=== PATIENT | female | born 1960 | race Caucasian/White ===

== ENCOUNTER 2017-05-25 19:19 | Emergency (ER) | payer BC ==
--- NOTE | 2017-05-25 21:28 | RAD ---
INDICATION: Headache after slipping on ice and striking occiput COMPARISON: None. TECHNIQUE: Contiguous axial sections of the brain were obtained from the skull base to the vertex without contrast. FINDINGS: The ventricles, cisterns and sulci are within normal limits. The irizarry-white matter differentiation is adequately maintained and there is no sulcal effacement. No significant focal abnormality or mass effect is present. There is no evidence for intracranial hemorrhage. There is mild induration of the subcutaneous tissue overlying the occiput. There is no underlying fracture of the calvarium. The visualized portion of the paranasal sinuses appear clear. The mastoid air cells are well aerated bilaterally. IMPRESSION: Normal CT of the brain.
--- NOTE | 2017-05-25 22:10 | ED ---
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 Patient denies LOC. States shortly after she began having a diffuse headache. Denies visual changes, loss of memory, trouble concentrating , nausea, vomiting and gait disturbance. Has not taken any medication for her headache. No other complaints or injuries. Denies neck/back pain. No hematoma or other signs of trauma. Feels fine otherwise. PMHx significant for diabetes, htn and high cholesterol. No anticoagulants. - History Of Current Complaint Chief Complaint: EDHeadInjury Stated Complaint: fall Time Seen by Provider: 05/25/17 19:50 Hx Obtained From: Patient Mechanism Of Injury: Direct Blow, Fall From A Standing Position Onset/Duration: Started Hours Ago, Traumatic, Resolved Onset of Pain: Minutes, Post Accident Severity Currently: None Severity Initially: Mild Pain Intensity: 4 Pain Scale Used: 0-10 Numeric Location of Head Injury: Occipital Location: Diffuse Character: Dull, Aching Aggravating Factor(s): Other: - nothing Alleviating Factor(s): Other: - nothing Associated Signs And Symptoms: Headache - Allergies/Home Medications Allergies/Adverse Reactions: Allergies Allergy/AdvReac Type Severity Reaction Status Date / Time No Known Allergies Allergy Verified 05/25/17 19:23 Home Medications: Home Medications Atorvastatin* [Lipitor*] 20 mg PO 2100 05/25/17 [History Confirmed 05/25/17] Insulin GLARGINE(*) [Lantus(*)] 20 units SUBCUT ONCE 05/25/17 [History Confirmed 05/25/17] Liraglutide [Victoza 3-Felipe] 20 units SQ DAILY 05/25/17 [History Confirmed ] Metformin HCl 500 mg PO BID 05/25/17 [History Confirmed 05/25/17] PMH/Surg Hx/FS Hx/Imm Hx Endocrine/Hematology History: Denies: Hx Diabetes Cardiovascular History: Denies: Hx Hypertension - Cancer History Hx Chemotherapy: No Hx Radiation Therapy: No - Surgical History Surgery Procedure, Year, and Place: n/a - Immunization History Immunizations Up to Date: Yes Infectious Disease History: No Infectious Disease History: Denies: Traveled Outside the [place] in Last 30 Days - Family History Known Family History: Positive: None - Social History Alcohol Use: None Substance Use Type: Reports: None Smoking Status (MU): Former Smoker Review of Systems Constitutional: Negative Cardiovascular: Negative Respiratory: Negative Neurological: Other - head injury Positive: Headache All Other Systems Reviewed And Are Negative: Yes Physical Exam Triage Information Reviewed: Yes Vital Signs On Initial Exam: Initial Vitals Temp Pulse Resp BP Pulse Ox 97.3 F 74 18 124/64 97 05/25/17 19:21 18 19:21 05/25/17 19:21 05/25/17 19:21 05/25/17 19:21 Vital Signs Reviewed: Yes Appearance: Positive: Well-Appearing, No Pain Distress, Well-Nourished Skin: Positive: Warm, Skin Color Reflects Adequate Perfusion, Dry, Other - no signs of trauma Head/Face: Positive: Normal Head/Face Inspection, Other - no racoon eyes or burnett signs. Negative: Scalp - no hematoma or signs of trauma Eyes: Positive: Normal, EOMI, ADRYAN, Conjunctiva Clear ENT: Positive: Normal ENT inspection, Hearing grossly normal, Pharynx normal, TMs normal Neck: Positive: Supple, Nontender Respiratory/Lung Sounds: Positive: Clear to Auscultation, Breath Sounds Present. Negative: Rales, Rhonchi, Wheezes Cardiovascular: Positive: Normal, RRR, Pulses are Symmetrical in both Upper and Lower Extremities. Negative: Murmur, Rub Musculoskeletal: Positive: Normal, Strength/ROM Intact. Negative: Limited @, Interruption @, Pain @ Neurological: Positive: Normal - memory and concentration intact normal neuro exam, Sensory/Motor Intact, Alert, Oriented to Person Place, Time, CN Intact II- III, Reflexes Intact, NV Bundle Intact Distally, Normal Gait, Facial Symmetry, Speech Normal - Keri Coma Scale Best Eye Response: 4 - Spontaneous Best Motor Response: 6 - Obeys Commands Best Verbal Response: 5 - Oriented Coma Scale Total: 15 Diagnostics - Vital Signs Vital Signs Temp Pulse Resp BP Pulse Ox 05/25/17 19:21 97.3 F 74 18 124/64 97 - Laboratory Lab Statement: Any lab studies that have been ordered have been reviewed, and results considered in the medical decision making process. - CT head CT Interpretation: No Acute Changes - Normal CT of the brain. CT Interpretation Completed By: Radiologist Head Injury Course/Dx Course Of Treatment: ct brain obtained and negative. appears to have suffered head injury. no signs/symptoms of a concussion at this time however may appear. patient was educated and is aware of the worsening signs and symptoms to watch out for. headache had improve once examined. no medicaton therefore given. if returned encouraged headache. increase fluids, rest and avoid physical activity. follow up pcp for recheck. - Diagnoses Differential Diagnosis/HQI/PQRI: Concussion Without LOC, Contusion, Hematoma, Other - head injury Provider Diagnoses: Head injury due to trauma Discharge - Discharge Plan Condition: Stable Disposition: HOME Patient Education Materials: Head Injury (ED) Referrals: Jacob Rhoades MD [Primary Care Provider] - Additional Instructions: Ibuprofen as needed for headache. Increase fluid intake and rest. Any new or owrsening symptoms please seek medical attention as we discussed ( concussive type symptoms= nausea, trouble concentrating, trouble focusing, headache). Follow up with PCP to ensure improvement.
[2017-05-25 22:17] VITALS: BP 131/68
== END 2017-05-25 22:22 | disposition home or self-care (01) ==
LOC: ED 19:19
DX: S09.90XA Unspecified injury of head, initial encounter (principal); W00.9XXA Unspecified fall due to ice and snow, initial encounter; Y92.9 Unspecified place or not applicable; R51 Headache; Z87.891 Personal history of nicotine dependence
CPT/HCPCS: 70450; 99282

== ENCOUNTER 2017-07-01 17:17 | Inpatient (IN) | payer BC ==
[2017-07-01] MEDS ORDERED: Nitroglycerin TAB 0.4 MG* 0.4 MG TAB SL PRN ×2 (17:32→19:41)
[2017-07-01] MEDS ORDERED: Aspirin Low Dose CHEW TAB* 81 MG ONE (17:33)
[2017-07-01] MEDS ORDERED: Nitroglycerin TAB 0.4 MG* 0.4 MG TAB ONE (17:33)
[2017-07-01] MEDS ORDERED: Aspirin Low Dose CHEW TAB* 81 MG PO ONE (17:33)
[2017-07-01] MEDS ORDERED: NS 0.9% 1000 ML* 1,000 ML IV ONE ×2 (17:40→17:53)
[2017-07-01 17:47] LABS: ABS Basophils 0.1 10^3/ul (0-0.2); ABS Eosinophils 0.2 10^3/ul (0-0.6); ABS Lymphocytes 3.8 10^3/ul (1.0-4.8); ABS Monocytes 0.7 10^3/ul (0-0.8); ABS Neutrophils 9.6 10^3/ul (1.5-7.7); ABS Nucleated RBC 0 10^3/ul; Eosinophil % 1.1 % (0-6); Hematocrit 46 % (35-47); Hemoglobin 15.4 g/dl (12.0-16.0); Lymphocyte % 26.7 % (25-47); Mean Corpuscular HGB Conc 34 g/dl (31-36); Mean Corpuscular Hemoglobin 30 pg (27-31); Mean Corpuscular Volume 88 fL (80-97); Mean Platelet Volume 8.5 um3 (7.4-10.4); Nucleated Red Blood Cells % 0.1; Platelet Count 286 10^3/ul (150-450); Red Blood Count 5.16 10^6/ul (4.0-5.4); Red Cell Distribution Width 13 % (10.5-15); White Blood Count 14.3 10^3/ul (3.5-10.8)
[2017-07-01] MEDS ORDERED: Heparin for STEMI(*) 5,000 UNITS/ML 1 ML VIAL IV ONE (17:50)
[2017-07-01] MEDS ORDERED: Ticagrelor* 90 MG TAB PO ONE (17:51)
[2017-07-01] MEDS ORDERED: Heparin(*) 1000 UNIT/ML 10 ML VIAL CATH LAB IV ONE ×2 (17:53→18:07)
[2017-07-01] MEDS ORDERED: VERAPAMIL 2.5 MG/ML 2 ML VIAL ** 5 mg/2 ml ONE ×2 (17:53→18:07)
[2017-07-01] MEDS ORDERED: fentaNYL* 50 MCG/ML 2 ML VIAL (100 MCG VIAL) ONE ×2 (17:53→18:11)
[2017-07-01] MEDS ORDERED: Midazolam* 1 MG/ML 10 ML VIAL (10 MG) ONE ×2 (17:53→18:11)
[2017-07-01] MEDS ORDERED: Atropine SYRINGE* 0.1 MG/ML 10 ML SYRINGE (1 MG) ONE (17:54)
[2017-07-01] MEDS ORDERED: Iohexol 350 (CONTRAST) 200 ML MDV IV ONE (17:54)
[2017-07-01] MEDS ORDERED: nitroGLYCERIN DRIP* 25,000 MCG/250 ML BTL ONE (17:54)
[2017-07-01] MEDS ORDERED: Heparin 2 UNITS/ML IVPREMIX* 1,000 ML IV ONE ×2 (17:54→18:38)
[2017-07-01] MEDS ORDERED: Lidocaine 1% INJ* 10 MG/ML 30 ML SDV ONE (17:54)
[2017-07-01] MEDS ORDERED: Heparin VIAL(*) 5000 UNITS/ML VIAL (FIVE THOUSAND) IV SCH (18:00)
[2017-07-01] MEDS: nitroGLYCERIN DRIP* 25,000 MCG/250 ML BTL IV ONE (18:00)
--- NOTE | 2017-07-01 18:05 | RAD ---
HISTORY: Chest pain COMPARISONS: None VIEWS: 1: frontal portable view of the chest at 5:56 PM FINDINGS: LINES AND TUBES: None. CARDIOMEDIASTINAL SILHOUETTE: The cardiomediastinal silhouette is normal for portable technique. PLEURA: The costophrenic angles are sharp. No pleural abnormalities are noted. LUNG PARENCHYMA: The lungs are clear. ABDOMEN: The upper abdomen is clear. There is no subphrenic gas. BONES AND SOFT TISSUES: No bone or soft tissue abnormalities are noted. IMPRESSION: NO ACTIVE CARDIOPULMONARY DISEASE.
[2017-07-01 18:07] LABS: EGFR Non-African American 66.9 (>60)
[2017-07-01] MEDS ORDERED: Metoprolol Tartrate IV* 1 MG/ML 5 ML VIAL ONE (18:52)
[2017-07-01] MEDS ORDERED: NitroPRUSSide* 25 MG/ML 2 ML VIAL IVPB ONE (18:55)
[2017-07-01] MEDS ORDERED: Norepinephrine VIAL* 1 MG/ML 4 ML VIAL ONE (18:56)
[2017-07-01] MEDS ORDERED: Eptifibatide IV (Load dose)(*) 2 MG/ML 10 ml VIAL ONE (19:04)
[2017-07-01] MEDS ORDERED: Ondansetron INJ* 2 MG/ML VIAL IV PRN (19:41)
[2017-07-01] MEDS ORDERED: Acetaminophen TAB* 325 MG PO PRN (19:41)
[2017-07-01] MEDS ORDERED: Zolpidem TAB* 5 MG PO PRN (19:41)
[2017-07-01] MEDS ORDERED: NS 0.9% 1000 ML* 1,000 ML IV SCH (19:45)
[2017-07-01] MEDS ORDERED: Dextrose 50% Syringe 50 ML* 25 GM/50 ML SYRINGE IV PUSH PRN (19:58)
[2017-07-01] MEDS: Ticagrelor* 90 MG TAB PO SCH (21:21)
[2017-07-01] MEDS: Metoprolol Tartrate TAB* 25 MG PO SCH (21:21)
[2017-07-02] MEDS: Insulin LISPRO* 1 UNITS UNIT SUBCUT SCH ×4 (00:35→17:13)
[2017-07-02] MEDS: Metoprolol Tartrate TAB* 25 MG PO SCH (04:13)
[2017-07-02 05:15] LABS: EGFR Non-African American 73.7 (>60)
[2017-07-02] MEDS: nitroGLYCERIN DRIP* 25,000 MCG/250 ML BTL IV ONE (07:58)
[2017-07-02] MEDS ORDERED: Liraglutide (NF) 18 MG/3 ML SUBCUT SCH (09:00)
[2017-07-02] MEDS: Metoprolol Tartrate TAB* 50 mg PO SCH ×2 (10:03→16:46)
[2017-07-02] MEDS: Ticagrelor* 90 MG TAB PO SCH ×2 (10:04→20:26)
[2017-07-02] MEDS: Aspirin Low Dose CHEW TAB* 81 MG PO SCH (10:04)
[2017-07-02] MEDS: Insulin GLARGINE(*) 1 UNITS UNIT SUBCUT SCH (10:04)
[2017-07-02] MEDS: PTO:Liraglutide (NF) 18 MG/3 ML SUBCUT SCH (11:17)
--- NOTE | 2017-07-02 16:28 | HP ---
CC: Dr. Rhoades; Rebekah Vila MD * HISTORY AND PHYSICAL: DATE OF ADMISSION: 07/01/17 PRIMARY CARE PHYSICIAN: Dr. Rhoades. HISTORY OF PRESENT ILLNESS: A 57-year-old diabetic, hypertensive, hyperlipidemic, obese patient presenting to the ER with acute inferior wall ST elevation infarct. She has no previous cardiac history. At approximately 9 o'clock in the morning on the day of admission she developed what she thought was heartburn with precordial discomfort. It persisted all day long, radiated to the jaw, through to her back between her shoulder blades. She presented to the ER where EKG at 1736 hours revealed sinus rhythm at 80 with an acute inferolateral ST elevation infarct with up to [address] elevation inferiorly, as well as in V4 through V6 with reciprocal ST depression with T-wave inversion in 1, aVL, V1 through V3. She received Brilinta, heparin, IV nitro, and aspirin pre label sewer, underwent emergent catheterization. Even in retrospect, she has no previous cardiac symptoms. She has a history of hyperlipidemia, diabetes, and a family history of premature coronary disease. PAST MEDICAL HISTORY: Obesity, hyperlipidemia, hypertension, diabetes type 2. PREHOSPITAL MEDICATIONS: 1. Metformin 500 mg b.i.d. 2. Lisinopril 20 mg daily. 3. Victoza 1.2 mg subcu daily. 4. Lantus insulin 20 units subcu daily. 5. Lipitor 40 mg daily. 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 She is a smoker. REVIEW OF SYSTEMS: General: No weight loss. No fever. 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 GI: No history of previous peptic ulcer disease or bleeding. She does not take daily aspirin. Circulatory: No claudication. Heme: No history of malignancy or anemia. Remainder all negative. PHYSICAL EXAMINATION VITAL SIGNS: When seen in the ER, blood pressure was 103/64, heart rate in the 70s, sinus rhythm. HEENT: Normal without xanthelasma, scleral injection, or jaundice. EOMs normal. NECK: JVP and carotids normal. No bruits. LUNGS: Clear to percussion and auscultation. She was complaining of reduced, but still present chest discomfort with IV nitroglycerin. CARDIAC: [place] and RV not palpable, normal S1 and S2, rhythm regular. No gallop , no murmur, no rub. ABDOMEN: Obese, nontender. Normal bowel sounds. Aorta not palpable. No bruits. Liver not palpable. EXTREMITIES: Femoral pulses palpable. No bruits. Radial pulses 2+, pedal pulses palpable. She has no cyanosis, clubbing, or edema. NEUROLOGIC: Cranial nerves grossly intact. SKIN: Warm and perfused. PSYCH: She is oriented and appropriate. DIAGNOSTIC STUDIES/LAB DATA: White count elevated 14.3, otherwise normal CBC. BMP: Normal electrolytes, creatinine 0.87, GFR 66.9. Random blood sugar high at 228, her lactate was elevated at 2.4. First troponin was 0.11. Cholesterol 169, triglycerides 134, LDL 83, HDL 59.3. Hemoglobin A1c in 2016 was high at 9.4, this admission hemoglobin A1c is even higher at 11.2. In reviewing [facility] , she has had hemoglobin A1c 7.7 or higher since 2011. EKG as above. Chest x-ray by my review shows no infiltrate or heart failure. IMPRESSION: 1. Acute inferolateral ST elevation infarct, Killip class I. She underwent emergent catheterization. Clinically, she presented late. 2. Diabetes type 2, poorly controlled. 3. Hypertension, on lisinopril. 4. Dyslipidemia, on Lipitor 40 with LDL less than 100, but above 70. I will increase her statin further. [id number]/[facility] #: [id number] [facility] HOSPITALFermin
[2017-07-02] MEDS: Atorvastatin* 80 MG TAB PO SCH (16:46)
[2017-07-03] MEDS: Metoprolol Tartrate TAB* 50 mg PO SCH ×3 (00:46→17:03)
[2017-07-03] MEDS: Insulin LISPRO* 1 UNITS UNIT SUBCUT SCH ×3 (08:25→16:49)
[2017-07-03] MEDS: Insulin GLARGINE(*) 1 UNITS UNIT SUBCUT SCH (08:26)
[2017-07-03] MEDS: Ticagrelor* 90 MG TAB PO SCH ×2 (09:44→21:27)
[2017-07-03] MEDS: Aspirin Low Dose CHEW TAB* 81 MG PO SCH (09:44)
[2017-07-03] MEDS: PTO:Liraglutide (NF) 18 MG/3 ML SUBCUT SCH (09:45)
[2017-07-03] MEDS: Lisinopril TAB* 5 MG PO SCH (15:16)
[2017-07-03] MEDS: Atorvastatin* 80 MG TAB PO SCH (17:03)
[2017-07-04] MEDS: Metoprolol Tartrate TAB* 50 mg PO SCH ×3 (02:03→17:01)
[2017-07-04 05:53] LABS: EGFR Non-African American 68.7 (>60)
[2017-07-04] MEDS: Insulin LISPRO* 1 UNITS UNIT SUBCUT SCH ×3 (08:57→16:49)
[2017-07-04] MEDS: Insulin GLARGINE(*) 1 UNITS UNIT SUBCUT SCH (08:58)
[2017-07-04] MEDS: PTO:Liraglutide (NF) 18 MG/3 ML SUBCUT SCH (08:58)
[2017-07-04] MEDS: Ticagrelor* 90 MG TAB PO SCH ×2 (09:00→21:49)
[2017-07-04] MEDS: Aspirin Low Dose CHEW TAB* 81 MG PO SCH (09:00)
[2017-07-04] MEDS: Lisinopril TAB* 5 MG PO SCH (09:00)
--- NOTE | 2017-07-04 13:25 | ED ---
Leigh Ann Solitario Nilda, scribed for Ted Alvares MD on 07/01/17 at 1754 . HPI Chest Pain - HPI Summary HPI Summary: This patient is a 57 year old F presenting to [facility] with a chief complaint of acute CP (radiates towards arms and back but not down arms) that has progressively worsened since this morning while at work. The patient rates the pain 6/10 in severity. Symptoms aggravated by palpation and alleviated by nothing. Patient reports at onset of CP, she began to feel increasingly fatigued and nauseous. Patient notes SOB, but denies current nausea, edema, and calf pain. She notes her chest pain was most severe on her way here. Patient states she is on medications for DM, HTN, and HLD. No PMHx OR or CABG. - History of Current Complaint Chief Complaint: EDChestWallPain Time Seen by Provider: 07/01/17 17:31 Hx Obtained From: Patient Onset/Duration: Started Hours Ago, Still Present Timing: Constant Current Severity: Moderate Pain Intensity: 6 Pain Scale Used: 0-10 Numeric Chest Pain Location: Mid Sternal Chest Pain Radiates: Yes Chest Pain Radiates To:: Back, Arm Aggravating Factor(s): Exertion, Other: - palpation Alleviating Factor(s): Nothing Associated Signs and Symptoms: Positive: Other: - fatigue, nausea (resolved), SOB; negative edema, calf pain - Allergy/Home Medications Allergies/Adverse Reactions: Allergies Allergy/AdvReac Type Severity Reaction Status Date / Time No Known Allergies Allergy Verified 05/25/17 19:23 Home Medications: Home Medications Atorvastatin* [Lipitor*] 40 mg PO DAILY 07/01/17 [History Confirmed 07/01/17] Liraglutide [Victoza 3-Felipe] 1.2 mg SUBCUT DAILY 07/01/17 [History Confirmed ] Lisinopril TAB* [Prinivil TAB*] 20 mg PO DAILY 07/01/17 [History Confirmed 07/01] metFORMIN* [Glucophage 500 MG TAB *] 500 mg PO BID 07/01/17 [History Confirmed 07/01/17] PMH/Surg Hx/FS Hx/Imm Hx Endocrine/Hematology History: Reports: Hx Diabetes Cardiovascular History: Reports: Hx Hypertension - Cancer History Hx Chemotherapy: No Hx Radiation Therapy: No - Surgical History Surgery Procedure, Year, and Place: n/a Infectious Disease History: No Infectious Disease History: Denies: Traveled Outside the [place] in Last 30 Days - Family History Known Family History: Positive: Cardiac Disease - Social History Occupation: Employed Full-time Alcohol Use: None Substance Use Type: Reports: None Smoking Status (MU): Former Smoker Review of Systems Positive: Fatigue. Negative: Fever, Chills Negative: Erythema Negative: Sore Throat Positive: Chest Pain Positive: Shortness Of Breath. Negative: Cough Positive: Nausea - resolved. Negative: Abdominal Pain, Vomiting Negative: dysuria, hematuria Positive: Other - negative calf pain. Negative: Edema Negative: Rash Neurological: Other - negative dizziness All Other Systems Reviewed And Are Negative: Yes Physical Exam - Summary Physical Exam Summary: Constitutional: Well-developed, Well-nourished, Alert. Patient is clutching chest. Skin: Warm, Dry, hirsutism HENT: Normocephalic; Atraumatic Eyes: Conjunctiva normal Neck: Musculoskeletal ROM normal neck. (-) JVD, (-) Stridor, (-) Tracheal deviation Cardio: Rhythm regular, rate normal, Heart sounds normal; Intact distal pulses; The pedal pulses are 2+ and symmetric. Radial pulses are 2+ and symmetric. (-) Murmur Pulmonary/Chest wall: Effort normal. (-) Respiratory distress, (-) Wheezes, (-) Rales Abd: Soft, (-) Tenderness, (-) Distension, (-) Guarding, (-) Rebound Musculoskeletal: (-) Edema Lymph: (-) Cervical adenopathy Neuro: Alert, Oriented x3 Psych: Mood and affect Normal Triage Information Reviewed: Yes Vital Signs On Initial Exam: Initial Vitals Temp Pulse Resp BP Pulse Ox 97.2 F 78 22 103/64 100 07/01/17 17:30 07/01/17 17:30 07/01/17 17:30 07/01/17 17:30 07/01/17 17:30 Vital Signs Reviewed: Yes Diagnostics - Vital Signs Vital Signs Temp Pulse Resp BP Pulse Ox 07/01/17 17:30 97.2 F 78 22 103/64 100 - Laboratory Lab Results: Lab Results 07/01/17 07/01/17 07/01/17 Range/Units 17:31 17:31 17:31 WBC 14.3 H (3.5-10.8) 10^3/ul RBC 5.16 (4.0-5.4) 10^6/ul Hgb 15.4 (12.0-16.0) g/dl Hct 46 (35-47) % MCV 88 (80-97) fL MCH 30 (27-31) pg MCHC 34 (31-36) g/dl RDW 13 (10.5-15) % Plt Count 286 (150-450) 10^3/ul MPV 8.5 (7.4-10.4) um3 Neut % (Auto) 67.1 (38-83) % Lymph % (Auto) 26.7 (25-47) % Hanson % (Auto) 4.7 (0-7) % Eos % (Auto) 1.1 (0-6) % Baso % (Auto) 0.4 (0-2) % Absolute Neuts (auto) 9.6 H (1.5-7.7) 10^3/ul Absolute Lymphs (auto) 3.8 (1.0-4.8) 10^3/ul Absolute Monos (auto) 0.7 (0-0.8) 10^3/ul Absolute Eos (auto) 0.2 (0-0.6) 10^3/ul Absolute Basos (auto) 0.1 (0-0.2) 10^3/ul Absolute Nucleated RBC 0 10^3/ul Nucleated RBC % 0.1 Sodium 133 (133-145) mmol/L Potassium 3.9 (3.5-5.0) mmol/L Chloride 102 (101-111) mmol/L Carbon Dioxide 23 (22-32) mmol/L Anion Gap 8 (2-11) mmol/L BUN 24 (6-24) mg/dL Creatinine 0.87 (0.51-0.95) mg/dL Est GFR ( Amer) 86.0 (>60) Est GFR (Non-Af Amer) 66.9 (>60) BUN/Creatinine Ratio 27.6 H (8-20) Glucose 228 H (70-100) mg/dL Hemoglobin A1c (4.0-5.6) % Lactic Acid 2.4 H* (0.5-2.0) mmol/L Calcium 10.1 (8.6-10.3) mg/dL Total Bilirubin 0.60 (0.2-1.0) mg/dL AST 36 (13-39) U/L ALT 12 (7-52) U/L Alkaline Phosphatase 79 (34-104) U/L Troponin I 0.11 H* (<0.04) ng/mL Total Protein 7.0 (6.4-8.9) g/dL Albumin 4.0 (3.2-5.2) g/dL Globulin 3.0 (2-4) g/dL Albumin/Globulin Ratio 1.3 (1-3) Triglycerides 134 mg/dL Cholesterol 169 mg/dL LDL Cholesterol 83 mg/dL HDL Cholesterol 59.3 mg/dL 07/01/17 Range/Units 17:31 WBC (3.5-10.8) 10^3/ul RBC (4.0-5.4) 10^6/ul Hgb (12.0-16.0) g/dl Hct (35-47) % MCV (80-97) fL MCH (27-31) pg MCHC (31-36) g/dl RDW (10.5-15) % Plt Count (150-450) 10^3/ul MPV (7.4-10.4) um3 Neut % (Auto) (38-83) % Lymph % (Auto) (25-47) % Hanson % (Auto) (0-7) % Eos % (Auto) (0-6) % Baso % (Auto) (0-2) % Absolute Neuts (auto) (1.5-7.7) 10^3/ul Absolute Lymphs (auto) (1.0-4.8) 10^3/ul Absolute Monos (auto) (0-0.8) 10^3/ul Absolute Eos (auto) (0-0.6) 10^3/ul Absolute Basos (auto) (0-0.2) 10^3/ul Absolute Nucleated RBC 10^3/ul Nucleated RBC % Sodium (133-145) mmol/L Potassium (3.5-5.0) mmol/L Chloride (101-111) mmol/L Carbon Dioxide (22-32) mmol/L Anion Gap (2-11) mmol/L BUN (6-24) mg/dL Creatinine (0.51-0.95) mg/dL Est GFR ( Amer) (>60) Est GFR (Non-Af Amer) (>60) BUN/Creatinine Ratio (8-20) Glucose (70-100) mg/dL Hemoglobin A1c 11.2 H (4.0-5.6) % Lactic Acid (0.5-2.0) mmol/L Calcium (8.6-10.3) mg/dL Total Bilirubin (0.2-1.0) mg/dL AST (13-39) U/L ALT (7-52) U/L Alkaline Phosphatase (34-104) U/L Troponin I (<0.04) ng/mL Total Protein (6.4-8.9) g/dL Albumin (3.2-5.2) g/dL Globulin (2-4) g/dL Albumin/Globulin Ratio (1-3) Triglycerides mg/dL Cholesterol mg/dL LDL Cholesterol mg/dL HDL Cholesterol mg/dL Result Diagrams: 07/01/17 17:31 18 05:24 Lab Statement: Any lab studies that have been ordered have been reviewed, and results considered in the medical decision making process. - Radiology CXR Radiology Interpretation Completed By: Radiologist - CXR reveals no active cardiopulmonary disease. Dr. Alvares has reviewed this radiology report. - EKG 1736 Cardiac Rate: NL EKG Rhythm: Sinus Rhythm - 80 bpm EKG Interpretation: inferior wall STEMI Re-Evaluation - Re-Evaluation First Eval Re-Evaluation Time: 18:12 Comment: Reviewed labs, treatment plan, and dispo plan with pt. Pt agreeable with plan. Chest Pain Course/Dx - Course Assessment/Plan: This patient is a 57 year old F presenting to [facility] with a chief complaint of acute CP (radiates towards arms and back but not down arms) that has progressively worsened since this morning while at work. The patient rates the pain 6/10 in severity. Symptoms aggravated by palpation and alleviated by nothing. Patient reports at onset of CP, she began to feel increasingly fatigued and nauseous. Patient notes SOB, but denies current nausea , edema, and calf pain. She notes her chest pain was most severe on her way here. Patient states she is on medications for DM, HTN, and HLD. No PMHx OR or CABG. STEMI alert 1738. An EKG reveals 80 bpm, NSR, inferior wall STEMI, 1736. CXR reveals no active cardiopulmonary disease. Dr. Alvares has reviewed this radiology report. [1749] Dr. Vila (claim representative) recommends Brilinta and IV NTG titrated for the inferior wall OR to get pain under control. Pt had relief of CP with IV NTG. Pt was stable in ER. She was taken emergently to [facility]orer [facility]. Dx STEMI. 45 Mins CCT. - Diagnoses Provider Diagnoses: STEMI (ST elevation myocardial infarction) - Provider Notifications Discussed Care Of Patient With: Rebekah Vila - Cardiology Time Discussed With Above Provider: 17:49 Instructed by Provider To: Other - recommends Brilinta and IV NTG titrated for the inferior wall OR to get pain under control. - Critical Care Time Critical Care Time: 30-74 min - 45 mins Discharge - Sign-Out/Discharge Documenting (check all that apply): Discharge - Discharge Plan Condition: Good Disposition: HOME Discharge Disposition Comment: Taken to Certified [facility] Administrator - Billing Disposition and Condition Condition: STABLE The documentation as recorded by the Leigh Ann manning Nilda accurately reflects the service I personally performed and the decisions made by me, Ted Alvares MD.
[2017-07-04] MEDS: Atorvastatin* 80 MG TAB PO SCH (17:01)
[2017-07-05] MEDS: Metoprolol Tartrate TAB* 50 mg PO SCH ×2 (01:54→08:19)
[2017-07-05 06:43] LABS: EGFR Non-African American 62.7 (>60)
[2017-07-05 07:48] VITALS: BP 104/53
[2017-07-05] MEDS: Insulin LISPRO* 1 UNITS UNIT SUBCUT SCH (07:49)
[2017-07-05] MEDS: Insulin GLARGINE(*) 1 UNITS UNIT SUBCUT SCH (08:19)
[2017-07-05] MEDS: Aspirin Low Dose CHEW TAB* 81 MG PO SCH (08:19)
[2017-07-05] MEDS: Ticagrelor* 90 MG TAB PO SCH (08:19)
[2017-07-05] MEDS: PTO:Liraglutide (NF) 18 MG/3 ML SUBCUT SCH (08:20)
[2017-07-05] MEDS: Lisinopril TAB* 5 MG PO SCH (08:21)
--- NOTE | 2017-07-06 00:07 | DS ---
CC: Dr. Rebekah Vila; Dr. Jacob Rhoades * DISCHARGE SUMMARY: DATE OF ADMISSION: 07/01/17 DATE OF DISCHARGE: 07/05/17 FINAL DIAGNOSIS: Acute ST-segment elevation inferior wall myocardial infarction. HOSPITAL COURSE: The patient is a pleasant 57-year-old female who presented to the [facility] in the throes of an acute ST segment elevation inferior wall myocardial infarction. She was seen by Dr. Rebekah Vila emergently and taken to the cardiovascular laboratory where she underwent cardiac catheterization and intervention with placement of a 2.75 x 20 mm long Synergy drug eluting stent in the right coronary artery, which had PATRICK-3 flow in most of the vessel with a total occlusion to the distal posterior left ventricular branch. The artery was probed with a wire and found to be too small to treat. The patient did well postprocedure. The cardiac enzymes revealed a peak CPK of 1200 and MB of 271. The EKG revealed evolving inferior wall myocardial infarction and last EKG taken on 07/04/17 revealed Q waves in II with a minimal of any R-wave in III and aVF with T-wave inversions in those leads, a very tiny Q wave is noted in I and aVL and V6. An R greater than S was seen in V2 with counter clockwise progression of the R-wave suggesting possible posterior wall infarct 2. The patient was up and about in the hospital with no significant ventricular arrhythmias laid out from the infarct. Vital signs remained stable. PHYSICAL EXAMINATION: Vital Signs: On the day of discharge, the patient's vital signs were blood pressure 104/53 with a pulse of 72, respirations 16, O2 saturation 100% on room air. Neck: Supple. No increased JVP. Carotid with good upstroke and volume without bruits. HEENT: Conjunctivae pink. Sclerae clear. Mouth revealed moist mucosa. Lungs: Revealed no accessory muscle usage. There was good excursion. Lungs are clear with no active rales, rhonchi , or wheezes. Heart: Revealed no visible heaves. No palpable heaves or thrills. Normal S1 and S2. There was no significant systolic or diastolic murmur. Abdomen: Mildly obese. Extremities: Without clubbing or cyanosis. The right radial artery site was well healed with good antegrade flow. Neuro: The patient alert and oriented with normal mentation. Musculoskeletal: The patient with normal gait. Psychiatric: The patient with normal affect. LABORATORY DATA: Laboratory results revealed sodium 135, potassium 4.1, chloride 104, bicarb 26, BUN and creatinine of 28 and 0.9, fasting blood sugar of 125. MEDICATIONS AT THE TIME OF DISCHARGE: Included: 1. Atorvastatin 80 mg a day. 2. Lantus insulin 20 mg a day. 3. Victoza 1.2 mg subcu daily. 4. Lisinopril 2.5 mg daily. 5. Metformin to be reinstituted at 500 mg b.i.d., but for the patient to check her sugar as she reinstitutes this to make sure this does not drop too low. 6. Metoprolol tartrate 50 mg q.8 hours. 7. Nitroglycerin as needed. 8. Ticagrelor 90 mg a day. 9. Aspirin therapy 81 mg a day. FOLLOWUP: The patient will be seen in followup by Dr. Rebekah Vila on . The patient received her stent card, her education booklet. All questions were answered to her satisfaction. One issue to be addressed through Dr. Jacob Rhoades during the course of the hospitalization, the patient had a hemoglobin A1c recorded at 11.2, which suggest she may most likely need tighter control of her diabetes. That will be left to discretion of Dr. Jacob Rhoades. [id number]/[facility] #: [id number] MTDD
== END 2017-07-05 11:47 | disposition home or self-care (01) | DRG 174 ==
LOC: ED 17:17 → CHICATH 18:15 → ICU 20:03 → MEDTELE 07-03 15:07
PROVIDERS: ADMIT Internal Medicine Cardiovascular Disease; ATTEND Internal Medicine Cardiovascular Disease
PROC: 027034Z Dilation of Coronary Artery, One Artery with Drug-eluting Intraluminal Device, Percutaneous Approach (ICD-10-PCS; 2017-07-01)
PROC: B2151ZZ Fluoroscopy of Left Heart using Low Osmolar Contrast (ICD-10-PCS; 2017-07-01)
PROC: B2111ZZ Fluoroscopy of Multiple Coronary Arteries using Low Osmolar Contrast (ICD-10-PCS; principal; 2017-07-01 15:00)
DX: I21.19 ST elevation (STEMI) myocardial infarction involving other coronary artery of inferior wall (principal); I47.2 Ventricular tachycardia; E11.9 Type 2 diabetes mellitus without complications; R07.9 Chest pain, unspecified; E78.5 Hyperlipidemia, unspecified; I10 Essential (primary) hypertension; L68.0 Hirsutism; F17.200 Nicotine dependence, unspecified, uncomplicated; E66.9 Obesity, unspecified; I25.2 Old myocardial infarction; Z95.1 Presence of aortocoronary bypass graft; Z82.49 Family history of ischemic heart disease and other diseases of the circulatory system; Z68.30 Body mass index [BMI] 30.0-30.9, adult; Z79.4 Long term (current) use of insulin; Z79.82 Long term (current) use of aspirin; Z79.02 Long term (current) use of antithrombotics/antiplatelets
CPT/HCPCS: 36415; 71045; 80048; 80053; 80061; 82550; 82553; 83036; 83605; 84484; 85025; 87641; 93005; 99156; 99157; 99285; A9270-GY; C1725; C1769; C1876; C1887; C9606-RC; J0461; J1327; J1644; J2250; J3010; J3490